=== PATIENT | female | born 1995 | race Caucasian/White ===

== ENCOUNTER 2022-12-14 11:14 | Emergency (ER) | payer OTHER, BC ==
[2022-12-14] MEDS ORDERED: Diphtheria,Pertussis(Acell),Tetanus Vaccine 0.5 ML Syringe IM ONE (11:30)
== END 2022-12-14 12:00 | disposition home or self-care (01) ==
LOC: MW.ED 11:14
DX: S61.451A Open bite of right hand, initial encounter (principal); S61.251A Open bite of left index finger without damage to nail, initial encounter; Z23 Encounter for immunization; W55.01XA Bitten by cat, initial encounter
CPT/HCPCS: 90471; 90715; 99283